=== PATIENT | female | born 1970 | race Caucasian/White ===

== ENCOUNTER → 2016-08-02 | Outpatient (CLI) | payer OTHER ==
[~2016-08-02] MED LIST: CHOL2000 PO; FURO-85 PO; HYDR-5688 PO; IBUP-1050 PO; LEVO50TA6 PO; OXYC-57 PO; PEDICHW50 PO; RBX500 PO; VENL150C PO; VENL75CA PO
--- NOTE | 2016-08-02 08:57 | DIAGNOSTIC IMAGING REPORT ---
MRI LUMBAR SPINE WITHOUT IV CONTRAST CLINICAL HISTORY: Chronic low back pain. Lower extremity radiculopathy. COMPARISON STUDY: MRI of the lumbar spine dated 08/20/2015. TECHNIQUE: MRI of lumbar spine is performed using various T1 and T2-weighted sequences in the axial and sagittal planes. IV contrast was not administered for this examination. FINDINGS: Lumbar spine: Vertebral body height and alignment are maintained throughout the lumbar spine. Degenerative endplate edema is seen at L4-L5. Normal marrow signal intensity is otherwise preserved throughout the visualized bony structures. The transverse and spinous processes appear intact. There is no evidence of spondylolysis. No destructive bony lesion is seen. Findings suggest previous right hemilaminectomy at L5. Intervertebral discs: There is degenerative disc desiccation and mild loss of height at L4-L5 and L5-S1. The remaining discs are normal in height and signal intensity. Spinal cord: The partially imaged spinal cord is normal in morphology and signal intensity. The conus medullaris terminates at the level of L1. The nerve roots of the cauda equina are normal in morphology. L1-L2: Unremarkable. L2-L3: Unremarkable. L3-L4: Unremarkable. L4-L5: There is minimal posterior disc bulge eccentric to the right. There is no significant acquired compromise of the central canal at this level. There is bilateral subarticular stenosis, right greater than left with impingement on the exiting right L4 nerve root. The disc bulge also abuts the transiting right L5 nerve root. Facet arthropathy causes moderate to severe right and mild left neural foraminal stenosis. L5-S1: There is a posterior disc bulge with annular fissure. No significant acquired compromise the central canal is identified at this level. There is bilateral subarticular stenosis. There may be impingement on the exiting bilateral L5 nerve roots. Facet arthropathy causes moderate left greater than right neural foraminal stenosis. Sacrum: Visualized sacrum is normal in morphology and signal intensity. Soft tissues: There is mild edema within the paraspinous musculature at L5-S1, possibly on a postoperative basis. The paraspinous soft tissues otherwise normal in appearance. The partially imaged retroperitoneal structures are grossly normal but incompletely assessed. IMPRESSION: 1. There is no large disc herniation or significant acquired compromise of the central canal. 2. Findings suggest previous laminectomy on the right at L5. 3. Degenerative disc disease with endplate edema is noted at L4-L5. 4. A disc bulge eccentric to the right at L4-L5 likely impinges on the exiting right L4 and transiting right L5 nerve roots. 5. Spondylotic change at additional levels as above. See discussion for detailed level by level analysis. Electronically signed by: Diomedes Hancock M.D. 08/02/2016 8:56 AM Dictated Date/Time: 08/02/2016 8:50 AM
== END | disposition home or self-care (01) ==
LOC: C.MRI 08:00
PROVIDERS: ATTEND Orthopaedic Surgery Orthopaedic Surgery of the Spine
DX: M48.06 Spinal stenosis, lumbar region (principal); Z98.1 Arthrodesis status; M51.36 Other intervertebral disc degeneration, lumbar region; M51.26 Other intervertebral disc displacement, lumbar region

== ENCOUNTER → 2016-08-10 | Outpatient (CLI) | payer OTHER ==
[2016-08-10 14:43] LABS: BASO % 0.3 %; BASO ABS # 0.03 K/uL (0-0.2); COMPLETE YES; EOS % 1.3 %; HEMATOCRIT 40.6 % (37-47); IG% 0.2 %; LYMPH % 42.4 %; LYMPH ABS # 4.15 K/uL (1.2-3.4); MEAN CELL VOLUME 93.1 fL (80-100); MEAN CORPUSCULAR HEMOGLOBIN 32.1 pg (25-34); MEAN CORPUSCULAR HGB CONC 34.5 g/dl (32-36); MONO % 5.6 %; NEUT % 50.2 %; PLATELET COUNT 342 K/uL (130-400); RED BLOOD COUNT 4.36 M/uL (4.2-5.4); WHITE BLOOD COUNT 9.78 K/uL (4.8-10.8)
[2016-08-10 14:53] LABS: PREG INTERNAL NEGATIVE QC NEG CLEAR BACKGROUND; PREG INTERNAL POSITIVE QC POS CONTROL LINE
--- NOTE | 2016-08-12 09:20 | History and Physical ---
History & Physical Date Aug 12, 2016. Chief Complaint Back and lower extremity difficulties inability to walk distances stand and function appropriately History of Present Illness The patient is a 46 year old female with complaints of back pain and lower extremity difficulty paresthesias numbness tingling name to L4 V nerve roots vertically on the right-hand side and the left-hand side to a lesser degree. She is a delightful patient increasing lower extremity difficulty failure to walk fairly to stand seeing pain. She has failed conservative care and has requested surgical intervention to repair her difficulty. Agreed to surgery be a lumbar spine laminectomy fashion and nerve roots at the L4 5 region. The extra stability is required we will use a motion preserving medical advance by the [employer] Past Medical/Surgical History Anxiety, depression, sleep apnea, hypothyroid Additional History Hepatic Disease: No Endocrine Disorder: Yes Kidney Disease: No Hypertension: No Heart Disease: No Bleeding Tendencies: No Infectious Diseases: No Allergies Coded Allergies: Penicillins (Unverified Allergy, Unknown, ANAPHYLAXIS, 08/11/16) Codeine (Unverified Adverse Reaction, Unknown, VOMITING, 08/11/16) Home Medications Scheduled Cholecalciferol (Vitamin D3), 1 CAP PO HS Levothyroxine Sodium (Levothyroxine Sodium), 1 TAB PO QAM Venlafaxine Hcl (Effexor Xr), 1 CAP PO HS Scheduled PRN Furosemide (Lasix), 20 MG PO DAILY PRN for FLUID RETENTION Hydrocodone/Acetaminophen 5MG/325MG ([place] 5MG/325MG), 1 TABLET PO QID PRN for Pain Ibuprofen (Advil), 200-600 MG PO Q4H PRN for Pain Methocarbamol (Methocarbamol), 500 MG PO BID PRN for Pain Oxycodone/Acetaminophen 5MG/325MG (Percocet 5MG/325MG), 1-2 TABLETS PO Q4H PRN for Pain Physical Examination Skin: warm/dry Eyes: normal inspection ENT: normal ENT inspection Head: normocephalic Neck: supple, no adenopathy, trachea midline Respiratory/Chest: lungs clear, normal breath sounds Cardiovascular: regular rate, rhythm, no edema Abdomen / GI: normal bowel sounds, non tender Back: normal inspection Extremities: normal inspection Neurologic/Psych: + pertinent finding (lower extremity pain and numbness tingling and decreased quadriceps strength.) Diagnosis Spinal stenosis lumbar spine L4 5 ASA Classification: ASA Class III Plan of Treatment Decompression laminectomy L4 5 lumbar spine with Globus transition system.
== END | disposition home or self-care (01) ==
LOC: C.LAB 12:51
PROVIDERS: ATTEND Orthopaedic Surgery Orthopaedic Surgery of the Spine
DX: Z01.818 Encounter for other preprocedural examination (principal); M48.06 Spinal stenosis, lumbar region

== ENCOUNTER 2016-08-14 08:40 | Observation (INO) | payer OTHER ==
[2016-08-11 12:37] VITALS: BMI 39.0
[~2016-08-14] VITALS: Ht 162.6 cm; Wt 102.7 kg
[~2016-08-14 08:40] MED LIST changes: +CLINDAMYCIN 600 MG/54 ML D5W 54 ML IV SCH; -PEDICHW50 PO; +SODIUM CHLORIDE 0.9% 1000ML 1,000 ML IV SCH; -VENL150C PO
[2016-08-14 09:00] VITALS: BP 141/76; PULSE 89; TEMP 36.8; O2SAT 98; Ht 162.6 cm; Wt 102.7 kg
[2016-08-14] MEDS ORDERED: GLYCOPYRROLATE INJ 0.2 MG/ML VIAL ONE (09:25)
[2016-08-14] MEDS ORDERED: DEXAMETHASONE SOD INJ 4 MG/ML VIAL ONE (09:25)
[2016-08-14] MEDS ORDERED: ROCURONIUM BROMIDE 10 MG/ML 5 ML VIAL ONE ×2 (09:25→11:59)
[2016-08-14] MEDS ORDERED: FENTANYL CITRATE INJ 50 MCG/1 ML 2 ML VIAL ONE (09:25)
[2016-08-14] MEDS ORDERED: ONDANSETRON INJ 2 MG/ML 2 ML VIAL ONE (09:25)
[2016-08-14] MEDS ORDERED: MIDAZOLAM HCL 1 MG/ML 2ML VIAL ONE (09:25)
[2016-08-14] MEDS ORDERED: PROPOFOL IV EMULSION 10 MG/ML 20 ML VIAL IV ONE (09:25)
[2016-08-14] MEDS ORDERED: LIDOCAINE HCL 2% 2 ML VIAL (20MG/ML) ONE (09:25)
[2016-08-14 10:15] LABS: BUN/CREATININE RATIO 13.7 (10-20); CALCIUM 8.6 mg/dl (8.5-10.1); CREATININE 0.83 mg/dl (0.60-1.20); POTASSIUM 3.7 mmol/L (3.5-5.1)
[2016-08-14] MEDS ORDERED: MEPERIDINE HCL 25 MG/ML CARP IV PRN (10:30)
[2016-08-14] MEDS ORDERED: ATROPINE SULFATE 0.1 MG/ML 5ML SYR IV PRN (10:30)
[2016-08-14] MEDS ORDERED: EpHEDrine SULFATE INJ 50 MG/ML AMP IV PRN (10:30)
[2016-08-14] MEDS ORDERED: ONDANSETRON INJ 2 MG/ML 2 ML VIAL IV PRN ×2 (10:30→14:30)
[2016-08-14] MEDS ORDERED: HYDROmorphone INJ 1 MG/ML SYR IV PRN ×2 (10:30→14:30)
[2016-08-14] MEDS ORDERED: LABETALOL HCL IV 5 MG/ML 20ML IV PRN (10:30)
[2016-08-14] MEDS ORDERED: GELATIN SPONGE SZ 100 ONE (10:49)
[2016-08-14] MEDS ORDERED: BACITRACIN 50000 UNIT VIAL ONE (10:49)
[2016-08-14] MEDS ORDERED: THROMBIN FOR SOLN 20000 UNIT KIT ONE (10:49)
[2016-08-14] MEDS ORDERED: VANCOMYCIN HCL 1000MG/20ML VIAL ONE (10:49)
--- NOTE | 2016-08-14 10:49 | History & Physical Bridge Note ---
H&P Re-Evaluation Bridge Note: I have examined the patient, reviewed the History & Physical and in the interval since the performance of the History & Physical I have noted the following changes of clinical significance: No changes noted
[2016-08-14] MEDS ORDERED: BUPIVACAINE/EPINEPHRINE 0.5% MPF 1:200,000 10 ML VIAL ONE (10:50)
[2016-08-14] MEDS ORDERED: HYDROmorphone INJ 2 MG/ML SYR/VIAL ONE (12:35)
[2016-08-14] MEDS: THROMBIN FOR SOLN 20000 UNIT KIT ONE ×2 (13:55→14:07)
--- NOTE | 2016-08-14 14:06 | DIAGNOSTIC IMAGING REPORT ---
INTRAOPERATIVE RADIOGRAPH CLINICAL HISTORY: L4-L5 laminectomy. Fluoroscopy time: 10 seconds. FINDINGS: A single spot fluoroscopic image of the lower lumbar spine is presented. There are postoperative changes from laminectomy and posterior fusion at L4-L5. Interpedicular screws are present at both levels. The orthopedic hardware appears intact. IMPRESSION: Intraoperative image from L4 -L5 spinal fusion as above. Electronically signed by: Diomedes Hancock M.D. 08/14/2016 2:05 PM Dictated Date/Time: 08/14/2016 2:04 PM
[2016-08-14] MEDS: SODIUM CHLORIDE 0.9% 1000ML 1,000 ML IV SCH ×2 (14:20→16:33)
--- NOTE | 2016-08-14 14:27 | [facility] Operative Report ---
Operative Report Operative Date Aug 14, 2016. Pre-Operative Diagnosis Spinal stenosis lumbar spine L4,L5 Post-Operative Diagnosis Spinal stenosis lumbar spine L4,L5 Procedure(s) Performed L4-L5 Laminectomy with globus transition; motion preserving technology Surgeon Dr. Hussain Concepcion Chiller Hand Surgeon(s) Gabriel De La Fuente PA-C Estimated Blood Loss 200 Findings Stenosis and disc herniation Specimens None Complication(s) None Disposition Recovery Room / PACU Indications Tinea back lower extremity difficulty lower extremity weakness paresthesias numbness and continued pain we could not control with nonsurgical methods Description of Procedure Patient was taken to the operating room [facility] successful general intubated anesthetic Choudhury catheter placed throughout the patient was placed prone on the Miguel table protected all soft tissue and ocular structures. Scrubbed first with Betadine prep with ChloraPrep draped her sterile. We made a skin incision from 3-5 on the lumbar spine region dissecting the soft tissue use revision strategies to get out over the facet joints putting a deep self-retaining retractor. We dissected free the dura at the 45 lumbar spine region. With use revision strategies using curettes and Kerrisons reaming up the nerve roots bilaterally which in this case with the 5 and IV nerve roots bilaterally. [place] that all the decompression we provided she was mildly unstable then. We then shows the globus [place] [employer] operations transitional system using pedicle screws at 4 pedicle screws at 5 Gator relative stability but we rail to avoid fusion technology. We then irrigated thoroughly with approximate 6 mL of fluid a some Gelfoam over the dural structures vancomycin deep to the wound.. We close fashion fashion with 1 Vicryl suture 20 on the subcuticular layer. Went with 3-0 nylon suture and the skin surfaces and dressings applied and then returned supine to PACU stable. Interoperative complications. Sponge and needle count correct at the close of procedure. Estimated blood loss 200 mL. Thank you I attest to the content of the Intraoperative Record and any orders documented therein. Any exceptions are noted below.
[2016-08-14] MEDS ORDERED: NALOXONE HCL 0.4 MG/1 ML VIAL/CARP IV PRN (14:30)
[2016-08-14] MEDS ORDERED: LORAZEPAM 1 MG TAB PO PRN (14:30)
[2016-08-14] MEDS ORDERED: HYDROmorphone INJ 2 MG/ML SYR/VIAL IV PRN (14:30)
[2016-08-14] MEDS ORDERED: MAGNESIUM HYDROXIDE SUSP 30 ML UDC PO PRN (14:30)
[2016-08-14] MEDS ORDERED: METOCLOPRAMIDE HCL INJ 5 MG/ML 2 ML VIAL IV PRN (14:30)
[2016-08-14] MEDS ORDERED: PROMETHAZINE HCL INJ 12.5 MG in SODIUM CHLORIDE 0.9% 50ML 50 ML IV PRN (14:30)
[2016-08-14] MEDS ORDERED: TRAMADOL HCL 50 MG TAB PO PRN (14:30)
[2016-08-14] MEDS ORDERED: ACETAMINOPHEN 325 MG TAB PO PRN (14:30)
[2016-08-14] MEDS ORDERED: LORAZEPAM INJ 1 MG in SYRINGE 0.5 ML IV PRN (14:30)
[2016-08-14] MEDS ORDERED: ESMOLOL HCL 10 MG/ML 10 ML VIAL ONE (14:42)
[2016-08-14] MEDS ORDERED: IV FLUIDS COMPLETED PRN (14:45)
[2016-08-14] MEDS ORDERED: HYDROmorphone HCL 0.5MG/ML 50 ML CASSETTE ONE (14:45)
[2016-08-14] MEDS: FENTANYL CITRATE INJ 50 MCG/1 ML 2 ML VIAL IV PRN ×4 (14:55→15:17)
[2016-08-14] MEDS ORDERED: METOPROLOL TARTRATE 1 MG/ML VIAL ONE (15:32)
[2016-08-14] MEDS ORDERED: METOPROLOL TARTRATE 1 MG/ML VIAL IV STA (15:33)
--- NOTE | 2016-08-14 15:42 | Anesthesiology Progress Note ---
Anesthesia Post Op Note Date & Time Aug 14, 2016 at 15:42 Vital Signs Pain Intensity: 3 Vital Signs Past 12 Hours Date Time Temp Pulse Resp B/P (MAP) Pulse Ox O2 Delivery O2 Flow Rate FiO2 08/14/16 15:35 103 106/74 08/14/16 15:15 102 15 126/98 93 Nasal Cannula 4 08/14/16 15:05 101 18 115/81 95 Mask 10 08/14/16 14:55 102 15 129/95 97 Mask 10 08/14/16 14:45 98 19 138/90 96 Mask 10 08/14/16 14:35 36.6 96 16 136/95 96 Mask 10 08/14/16 09:00 36.8 89 18 141/76 (97) 98 Room Air Notes Mental Status: alert / awake / arousable, participated in evaluation Pt Amnestic to Procedure: Yes Nausea / Vomiting: adequately controlled Pain: adequately controlled Airway Patency, RR, SpO2: stable & adequate BP & HR: stable & adequate Hydration State: stable & adequate Anesthetic Complications: no major complications apparent
[2016-08-14 16:27] VITALS: BP 109/69; PULSE 79; TEMP 36.5; O2SAT 94
[2016-08-14] MEDS: HYDROmorphone HCL 0.5MG/ML 50 ML CASSETTE IV PRN ×2 (16:44→22:57)
[2016-08-14 16:56] VITALS: BP 114/75; PULSE 79; O2SAT 97
[2016-08-14] MEDS: KETOROLAC TROMETHAMINE 30 MG/ML VIAL IV. SCH (18:21)
[2016-08-14] MEDS: DEXAMETHASONE INJ 10 MG in SYRINGE 0 ML IV SCH (18:22)
[2016-08-14 19:30] VITALS: BP 141/81; PULSE 83; TEMP 36.7; O2SAT 97
[2016-08-14] MEDS: CLINDAMYCIN IV 600 MG in DEXTROSE 5% 50ML 50 ML IV SCH (21:48)
[2016-08-14 23:05] VITALS: BP 109/61; PULSE 90; TEMP 36.9; O2SAT 98
[2016-08-14 23:55] VITALS: O2SAT 96
[2016-08-15] MEDS: KETOROLAC TROMETHAMINE 30 MG/ML VIAL IV. SCH ×4 (00:08→18:08)
[2016-08-15] MEDS: SODIUM CHLORIDE 0.9% 1000ML 1,000 ML IV SCH ×3 (01:59→14:08)
[2016-08-15] MEDS: DEXAMETHASONE INJ 10 MG in SYRINGE 0 ML IV SCH ×3 (02:00→18:08)
[2016-08-15 03:20] VITALS: BP 114/61; PULSE 103; TEMP 36.7; O2SAT 95
[2016-08-15] MEDS: CLINDAMYCIN IV 600 MG in DEXTROSE 5% 50ML 50 ML IV SCH (04:03)
[2016-08-15] MEDS ORDERED: BISACODYL 5 MG TABEC PO PRN (06:00)
[2016-08-15] MEDS ORDERED: BISACODYL 10 MG SUPP PR PRN (06:00)
[2016-08-15] MEDS: HYDROmorphone HCL 0.5MG/ML 50 ML CASSETTE IV PRN ×4 (06:47→23:12)
[2016-08-15 07:54] VITALS: BP 126/66; PULSE 78; TEMP 36.6; O2SAT 94
[2016-08-15 07:56] VITALS: O2SAT 94
--- NOTE | 2016-08-15 08:23 | Progress Note ---
Subjective Date of Service: Aug 15, 2016. Subjective Pt evaluation today including: conversation w/ patient Voiding: coronado catheter in place Review of Systems Constitutional: + see HPI All Other Systems: Reviewed and Negative Medications Patient discharged home will continue on her home medication. Objective Vital Signs Date Time Temp Pulse Resp B/P (MAP) Pulse Ox O2 Delivery O2 Flow Rate FiO2 08/15/16 08:05 Room Air 08/15/16 07:56 94 Room Air 08/15/16 07:54 36.6 78 20 126/66 (86) 94 Room Air 08/15/16 03:20 36.7 103 16 114/61 (78) 95 Nasal Cannula 2.0 08/14/16 23:55 96 Nasal Cannula 2.0 08/14/16 23:05 36.9 90 16 109/61 (77) 98 Nasal Cannula 4.0 08/14/16 19:30 36.7 83 18 141/81 (101) 97 Nasal Cannula 4.0 08/14/16 16:56 79 16 114/75 (88) 97 Nasal Cannula 2.0 08/14/16 16:27 36.5 79 20 109/69 (82) 94 Nasal Cannula 3.5 08/14/16 16:00 Nasal Cannula 3.0 08/14/16 16:00 Nasal Cannula 3.0 08/14/16 15:35 36.8 103 14 106/74 93 Nasal Cannula 4 08/14/16 15:35 103 106/74 08/14/16 15:25 103 17 102/84 92 Nasal Cannula 4 08/14/16 15:15 102 15 126/98 93 Nasal Cannula 4 08/14/16 15:05 101 18 115/81 95 Mask 10 08/14/16 14:55 102 15 129/95 97 Mask 10 08/14/16 14:45 98 19 138/90 96 Mask 10 08/14/16 14:35 36.6 96 16 136/95 96 Mask 10 08/14/16 09:00 36.8 89 18 141/76 (97) 98 Room Air Laboratory Results Last 24 Hours Test 08/14/16 09:42 Sodium Level 138 mmol/L Potassium Level 3.7 mmol/L Chloride Level 105 mmol/L Carbon Dioxide Level 26 mmol/L Anion Gap 7.0 mmol/L Blood Urea Nitrogen 11 mg/dl Creatinine 0.83 mg/dl Est Creatinine Clear Calc Drug Dose 98.8 ml/min Estimated GFR () 98.0 Estimated GFR (Non- 84.6 BUN/Creatinine Ratio 13.7 Random Glucose 87 mg/dl Calcium Level 8.6 mg/dl Assessment and Plan Assessment. Post lumbar spine decompression L4 5 lumbar spine. Comorbidities obesity also had instrumentation the lumbar spine with a motion preserving technology. Plan: The patient up and ambulatory today we will DC her Coronado catheter. The discharge for tomorrow Continued [facility] stay due to: inadequate oral pain control Discharge planning: home
[2016-08-15] MEDS: POLYETHYLENE (MIRALAX) 17 GM PACK PO SCH (08:31)
--- NOTE | 2016-08-15 08:56 | Anesthesiology Progress Note ---
Anesthesia Post Op Note Date & Time Aug 15, 2016 at 08:56 Vital Signs Pain Intensity: 8.0 Vital Signs Past 12 Hours Date Time Temp Pulse Resp B/P (MAP) Pulse Ox O2 Delivery O2 Flow Rate FiO2 08/15/16 08:05 Room Air 08/15/16 07:56 94 Room Air 08/15/16 07:54 36.6 78 20 126/66 (86) 94 Room Air 08/15/16 03:20 36.7 103 16 114/61 (78) 95 Nasal Cannula 2.0 08/14/16 23:55 96 Nasal Cannula 2.0 08/14/16 23:05 36.9 90 16 109/61 (77) 98 Nasal Cannula 4.0 Notes Mental Status: alert / awake / arousable, participated in evaluation Pt Amnestic to Procedure: Yes Nausea / Vomiting: adequately controlled Pain: adequately controlled Airway Patency, RR, SpO2: stable & adequate BP & HR: stable & adequate Hydration State: stable & adequate Anesthetic Complications: no major complications apparent
[2016-08-15 11:41] VITALS: BP 108/68; PULSE 88; TEMP 36.9; O2SAT 94
[2016-08-15] MEDS ORDERED: NURSING VERBAL MED ORDER ONE (14:15)
--- NOTE | 2016-08-15 15:17 | Discharge Instructions ---
Discharge Instructions Date of Service Aug 15, 2016. Admission Reason for Admission: Disc Herniation Discharge Discharge Diagnosis / Problem: same Discharge Goals Goal(s): Improve function Activity Recommendations Activity Limitations: resume your previous activity . Instructions / Follow-Up Instructions / Follow-Up MEDICATIONS: Please take your prescriptions as instructed at your pre-op appointment. SPECIAL CARE: The following information is intended to answer some of the common questions and concerns regarding your surgery. Each patient is an individual and receives individual counselling throughout the course of treatment, from diagnosis to surgery all the way through recovery. What follows is not an exhaustive list, but should be a useful guide to some of the common questions and concerns patients have regarding their surgeries. These are not provided to keep you from calling us; rather, they give you something accurate and concrete to reference as you recover from your procedure. If you need us, we are available to you. As always, if you are not sure about something, call us at [phone]. MEDICAL EMERGENCIES: For these conditions, call 911 or go to your local hospital-based Emergency Department - not [facility] or equivalent. * Paralysis * Severe chest pain or difficulty breathing * Swelling or redness of either leg Spine procedures can be rather complex and though complications are rare, they do occur. In such cases, effective advice regarding emergency situations cannot always be addressed over the telephone. You may be referred to the emergency department for more effective management of your problem. Activity Limitations: It is important to give your body time to heal, so please limit your activities : * In general, don't do anything that moves your spine too much. You should avoid contact sports, twisting or heavy lifting while you recover. * 5-10 pounds is all you should attempt to lift. * You should not plan on driving for approximately 3 weeks and you should avoid traveling more than 30-45 minutes at a time. Longer trips should be broken down with walking breaks spaced appropriately. * Physical therapy is not usually required. * Walking and good posture practices will help you recover and regain your function. * Avoid straining or sudden changes in position. * In general, the goal is to take it easy and recover. Don't cause any new problems. Just relax. Showers: * Do not take a bath, use a Jacuzzi or hot tub or otherwise submerge your incision. * It is usually safe to take a shower 4-5 days after your surgery. * Your incision does not require any special creams or ointments. * Simply clean it with soap and water, dry and re-dress with a clean bandage afterwards. Incision: * Keep incision clean, dry and protected until your first follow-up appointment. * Some amount of drainage and redness is normal. Any drainage should be fairly clear and not have a foul odor. * If you feel anything is wrong or you have excessive drainage, please call us. * Your stitches and maria t will be removed 10-14 days after your surgery. At the time of your first post-op visit. * Neck surgeries are typically closed with a suture underneath the skin. The steri-strips over the incision should be maintained until we see you in the office. Bracing: * You may be provided with a back or neck brace to encourage good posture and prevent injury. It will remind you not to do too much as you heal and will alert others to the fact that you have had a surgery. * Back braces may be removed for showers and when you are resting at home. They must be worn when you are walking around for any period of time or for travel. * For neck surgery, you will likely be provided with two cervical collars. The soft collar ([place] or foam rubber) is worn most commonly throughout the day and while sleeping. The plastic collar (provided at the hospital) is for showering/bathing. * Except while eating, collars should remain in place. More specifically, bracing is provided for a purpose and should be worn. * Please obtain your brace or collars prior to your operation and bring them to the hospital with you on the day of surgery. * You should also bring your collars to your post-op appointment with Dr. Concepcion. You should always take good care of your body and practice healthy habits, especially following surgery. You should: * Follow your doctor's treatment plan * Sit and stand properly with good posture (ears over shoulders, shoulders over hips) Don't slouch * Learn to lift correctly * Exercise regularly (low-impact aerobic exercise is especially good, but check with your doctor first) * Generally, be up and walking for 5-10 minutes at a time at least 3-4 times per day from the day you get home * Increasing walking to tolerance until you can walk for 20-30 minutes at a time * Attain and maintain a healthy body weight * Eat healthy foods ( a well-balanced, low-fat diet rich in fruits and vegetables) and get enough calcium * Avoid excessive use of alcohol When to call our office - If you notice any of the following: * Increased pain not relieve by pain medicine * Fevers greater then 100 degrees F, chills or flu symptoms * Increased redness around incision * Drainage from the incision that is not clear * Any foul smelling drainage * Swelling or fluid collection beneath the skin Miscellaneous: * In the hospital, you may be given a walker or cane for support while walking. These are temporary needs and are intended to prevent injuries due to falls. You may discontinue them when you feel strong and steady enough on your feet. * Sleep in a comfortable position. We find that many patients find a lounge chair or recliner with several pillows to be beneficial in the early post-operative period. * The support stockings should be used for 7-10 days and may be discontinued when you are back to walking more and conducting usual household activities. No problem is insignificant. We are here to help you and get you well. Contact us at [phone]. Definitions: Foraminotomy: If part of the disc or a bone spur (osteophyte) is pressing on a nerve as it leaves the vertebra (through an exit called the foramen), a foraminotomy may be done. Otomy means "to make an opening." A foraminotomy is making the opening of the foramen larger, so the nerve can exit without being compressed. Laminotomy: Similar to the foraminotomy, a laminotomy makes a larger opening, this time in your bony plate protecting your spinal canal and spinal cord (the lamina). The lamina may be pressing on your nerve, so the surgeon may make more room for the nerves using a laminotomy. Laminectomy: Sometimes, a laminotomy is not sufficient. The surgeon may need to remove all or part of the lamina. This procedure is called a laminectomy. This can often be done at many levels without any harmful effects. Current Hospital Diet Patient's current hospital diet: Regular Diet Discharge Diet Recommended Diet: Regular Diet Procedures Procedures Performed: L4-L5 Laminectomy with globus transition; motion preserving technology Pending Studies Studies pending at discharge: no Medical Emergencies . Who to Call and When: Medical Emergencies: If at any time you feel your situation is an emergency, please call 911 immediately. . Non-Emergent Contact Non-Emergency issues call your: Surgeon Call Non-Emergent contact if: you have any medication questions . "Provider Documentation" section prepared by Hussain Concepcion. . VTE Core Measure Inpt VTE Proph given/why not?: Treatment not indicated
[2016-08-15 15:35] VITALS: BP 146/84; PULSE 87; TEMP 36.7; O2SAT 90
[2016-08-15 22:50] VITALS: BP 122/72; PULSE 99; TEMP 36.6; O2SAT 93
[2016-08-16] MEDS: KETOROLAC TROMETHAMINE 30 MG/ML VIAL IV. SCH ×2 (00:15→06:16)
[2016-08-16] MEDS: DEXAMETHASONE INJ 10 MG in SYRINGE 0 ML IV SCH (01:58)
[2016-08-16 03:05] VITALS: BP 120/71; PULSE 93; TEMP 37; O2SAT 99
[2016-08-16] MEDS: HYDROmorphone HCL 0.5MG/ML 50 ML CASSETTE IV PRN (07:06)
[2016-08-16 07:59] VITALS: BP 134/76; PULSE 72; TEMP 36.3; O2SAT 98
--- NOTE | 2016-08-16 08:02 | Discharge Summary ---
Orthopedic Discharge Summary Admission Date/Reason Aug 14, 2016 at 09:35 Disc Herniation. Discharge Date/Disposition Aug 16, 2016 Home Diagnosis Principal Diagnosis: Spinal stenosis spinal instability disc herniation Procedure(s) Performed Lumbar spine laminectomy and discectomy L4 5 lumbar spine. Placement of motion preserving technology L4 5 lumbar spine. Admission Physical Exam As per Admitting History & Physical. Hospital Course Patient was admitted to my service after lumbar spine surgery. He did well ambulatory day one discharged home improved stable condition date #2 there no apparent medical complication surgical complications was alert and oriented no chest pain or shortness of breath no neurological deficits. Thank you Discharge Instructions Please refer to the electronic Patient Visit Report (Discharge Instructions) for additional information.
[2016-08-16 08:06] VITALS: O2SAT 98
[2016-08-16 08:34] VITALS: BP 134/76; PULSE 72; TEMP 36.3; O2SAT 98
[2016-08-16] MEDS: POLYETHYLENE (MIRALAX) 17 GM PACK PO SCH (08:39)
--- NOTE | 2016-08-22 16:25 | History and Physical ---
History & Physical Date Aug 22, 2016. Chief Complaint Back and lower exremity pain and weakness History of Present Illness The patient is a 46 year old female with complaints of back pain and weakness Past Medical/Surgical History Surgical Problems: (1) Status post lumbar laminectomy Additional History Hepatic Disease: No Endocrine Disorder: No Kidney Disease: No Hypertension: Yes Heart Disease: No Bleeding Tendencies: No Infectious Diseases: No Other: Obesity Allergies Coded Allergies: Penicillins (Verified Allergy, Unknown, ANAPHYLAXIS, 08/14/16) Codeine (Verified Adverse Reaction, Unknown, VOMITING, 08/14/16) Home Medications Scheduled Cholecalciferol (Vitamin D3), 1 CAP PO HS Levothyroxine Sodium (Levothyroxine Sodium), 1 TAB PO QAM Venlafaxine Hcl (Effexor Xr), 1 CAP PO HS Scheduled PRN Furosemide (Lasix), 20 MG PO DAILY PRN for FLUID RETENTION Hydrocodone/Acetaminophen 5MG/325MG ([place] 5MG/325MG), 1 TABLET PO QID PRN for Pain Ibuprofen (Advil), 200-600 MG PO Q4H PRN for Pain Methocarbamol (Methocarbamol), 500 MG PO BID PRN for Pain Oxycodone/Acetaminophen 5MG/325MG (Percocet 5MG/325MG), 1-2 TABLETS PO Q4H PRN for Pain Physical Examination Skin: warm/dry Eyes: normal inspection ENT: normal ENT inspection Head: normocephalic Neck: supple Respiratory/Chest: lungs clear Cardiovascular: regular rate, rhythm Abdomen / GI: normal bowel sounds Back: + pertinent finding (severe loss of motion in flexion ,extension and rotation) Addiitonal Comments: Images; Disc herniation and stenosis lumbar spine Diagnosis Surgery : Laminectomy and fusion , lumbar ASA Classification: ASA Class III
== END 2016-08-16 10:38 | disposition home or self-care (01) ==
LOC: C.ACU 08:40 → C.3E 09:35 → ENRESERV 15:11
PROVIDERS: ADMIT Orthopaedic Surgery Orthopaedic Surgery of the Spine; ATTEND Orthopaedic Surgery Orthopaedic Surgery of the Spine
DX: M48.06 Spinal stenosis, lumbar region (principal)

== ENCOUNTER → 2016-09-05 | Outpatient (CLI) | payer OTHER ==
[~2016-09-05] MED LIST changes: -CLINDAMYCIN 600 MG/54 ML D5W 54 ML IV SCH; -SODIUM CHLORIDE 0.9% 1000ML 1,000 ML IV SCH
[2016-09-05 18:01] LABS: BLOOD UREA NITROGEN 9 mg/dl (7-18); BUN/CREATININE RATIO 10.6 (10-20); CALCIUM 9.1 mg/dl (8.5-10.1); CARBON DIOXIDE 28 mmol/L (21-32); CHLORIDE 105 mmol/L (98-107); CREATININE 0.81 mg/dl (0.60-1.20); GLUCOSE 80 mg/dl (70-99); MAGNESIUM 2.1 mg/dl (1.8-2.4); POTASSIUM 3.9 mmol/L (3.5-5.1); SODIUM 138 mmol/L (136-145)
[2016-09-06 06:46] LABS: ESTIMATED AVERAGE GLUCOSE 108 mg/dl; HA1C FLAG Normal (Normal)
== END | disposition home or self-care (01) ==
LOC: C.LABPBG 15:46
PROVIDERS: ATTEND Family Medicine
DX: R60.0 Localized edema (principal); R63.1 Polydipsia

== ENCOUNTER → 2017-09-18 | Outpatient (CLI) | payer OTHER ==
[~2017-09-18] MED LIST changes: -IBUP-1050 PO; -LEVO50TA6 PO; +METH500T PO; +MTR800 PO; +OXGN; -RBX500 PO; +VENL150T33 PO; -VENL75CA PO; +VENL75CA88 PO
[2017-09-18 13:14] LABS: BASO % 0.2 %; BASO ABS # 0.02 K/uL (0-0.2); EOS % 1.5 %; EOS ABS # 0.17 K/uL (0-0.5); HEMATOCRIT 39.9 % (37-47); HEMOGLOBIN 13.4 g/dL (12.0-16.0); IG# 0.03 K/uL (0.00-0.02); LYMPH % 33.2 %; MEAN CELL VOLUME 93.2 fL (80-100); MEAN CORPUSCULAR HEMOGLOBIN 31.3 pg (25-34); MEAN CORPUSCULAR HGB CONC 33.6 g/dl (32-36); MEAN PLATELET VOLUME 9.7 fL (7.4-10.4); MONO % 6.6 %; MONO ABS # 0.74 K/uL (0.11-0.59); NEUT % 58.2 %; NEUT ABS # 6.48 K/uL (1.4-6.5); PLATELET COUNT 329 K/uL (130-400); RED CELL DISTRIBUTION WIDTH CV 13.7 % (11.5-14.5); RED CELL DISTRIBUTION WIDTH SD 46.7 fL (36.4-46.3); WHITE BLOOD COUNT 11.14 K/uL (4.8-10.8)
== END | disposition home or self-care (01) ==
LOC: C.LAB 12:13
PROVIDERS: ATTEND Orthopaedic Surgery Orthopaedic Surgery of the Spine
DX: Z01.812 Encounter for preprocedural laboratory examination (principal)

== ENCOUNTER → 2017-09-18 | Outpatient (CLI) | payer OTHER ==
[~2017-09-18] MED LIST changes: +LEVO50TA6 PO
[2017-09-18 13:54] LABS: BLOOD UREA NITROGEN 10 mg/dl (7-18); CALCIUM 8.9 mg/dl (8.5-10.1); CARBON DIOXIDE 27 mmol/L (21-32); CREATININE 0.76 mg/dl (0.60-1.20); GLUCOSE 83 mg/dl (70-99); POTASSIUM 3.7 mmol/L (3.5-5.1); SODIUM 136 mmol/L (136-145)
== END | disposition home or self-care (01) ==
LOC: C.LAB 12:49
PROVIDERS: ATTEND Family Medicine
DX: R60.9 Edema, unspecified (principal); E03.9 Hypothyroidism, unspecified